=== PATIENT | male | born 1975 | race Caucasian/White ===

== ENCOUNTER 2023-08-22 18:37 | Emergency (ER) | payer OTHER, SELFPAY ==
[2023-08-22 19:05] VITALS: BP 168/97; PULSE 82; RESP 16; TEMP 36.8; O2SAT 94; BMI 30.3
--- NOTE | 2023-08-22 19:31 | ED_ITS ---
HPI - General Adult General Chief complaint: Laceration/Wound Stated complaint: Lac L hand Time Seen by Provider: 08/22/23 19:23 History of Present Illness HPI narrative: Pt has laceration to left hand. Was cutting an apple with a slicer. Needs Tetanus. 48-year-old man presenting to the emergency department having just sliced his left hand while cutting an apple. Has bled copiously is concerned that might have an arterial bleed. Is not reporting feeling lightheaded or short of breath. Is not complaining of pain. Not reporting loss of sensation or function. No anticoagulation noted Related Data Home Medications Medication Instructions Recorded Confirmed fluoxetine 40 mg capsule 40 mg PO DAILY 08/22/23 08/22/23 propranolol 20 mg tablet 20 mg PO BID 08/22/23 08/22/23 Allergies Allergy/AdvReac Type Severity Reaction Status Date / Time No Known Drug Allergies Allergy Verified 08/22/23 19:09 Review of Systems 2 Status of ROS: Reports: 6 or more systems reviewed and unremarkable except as noted in History and below Exam Narrative: Exam Narrative: Pleasant. Bearded. Blood soaked dressings held on to his left hand. Breathing easily. Calm. Removing dressings does show copious bleeding with pulsatile dark blood emanating from a shaved laceration that is full dermal over the left thenar eminence. Primary bleeding appears to be at the proximal and distal aspect from small surface vasculature. 2-1/4 inches in length extending distally just proximal to the medial aspect of the interphalangeal joint of the thumb. Maximal width 1-1/2-1-3/4 cm. Appears to have full extension and flexion with good strength of his hand/thumb. I did not test for sensation. Const: Vital Signs, click to edit/add: Vital Signs - 24 hr 08/22/23 19:05 Temperature 98.2 F Pulse Rate [Pulse Oximeter] 82 Respiratory Rate 16 Blood Pressure [Ri ght Upper Arm] 168/97 H Pulse Oximetry 94 Oxygen Delivery Me thod Room Air Documenting provider has reviewed patient's vital signs: yes Course Vital Signs Vital signs: Initial Vital Signs Temperature 98.2 F 08/22/23 19:05 Temperature Source Temporal Artery Scan 08/22/23 19:05 Pulse Rate 82 08/22/23 19:05 Pulse Rhythm Regular 08/22/23 19:05 Respiratory Rate 16 08/22/23 19:05 Blood Pressure 168/97 H 08/22/23 19:05 Blood Pressure Mean 120 H 08/22/23 19:05 Blood Pressure Position Sitting 08/22/23 19:05 Pulse Oximetry 94 08/22/23 19:05 Oxygen Delivery Method Room Air 08/22/23 19:05 Vital Signs Temperature 98.2 F 08/22/23 19:05 Pulse Rate 82 08/22/23 19:05 Respiratory Rate 16 08/22/23 19:05 Blood Pressure 168/97 H 08/22/23 19:05 Pulse Oximetry 94 08/22/23 19:05 Oxygen Delivery Method Room Air 08/22/23 19:05 Temperature 98.2 F 08/22/23 19:05 Pulse Rate 82 08/22/23 19:05 Respiratory Rate 16 08/22/23 19:05 Blood Pressure 168/97 H 08/22/23 19:05 Pulse Oximetry 94 08/22/23 19:05 Oxygen Delivery Method Room Air 08/22/23 19:05 Medical Decision Making MDM Narrative Medical decision making narrative: This will clearly need some repair/containment of bleeding. Does not appear to have damage deep structures. This wound is clearly going to have to heal by some degree of secondary intention. I do not think I will be able to close this completely without compromising tissue or function. I returned to inject with lidocaine with epinephrine. Compression reapplied by Luzmaria. Returning to clean and repair. Bleeding has slowed a little bit I think the epinephrine was helpful. Good wound anesthesia achieved. Cleansed with Shur- Clens type solution. Did place brief tourniquet at base of wrist. This allowed for placement of some 3-0 Ethilon horizontal mattress sutures to gain some control and closer approximation. Was considering potentially undermining tissue to bring wound edges closer together but I think this would just cause more bleeding with limited benefit. Conferred with colleague who also recom mended simple closure/approximation and secondary intention. Placed than some simple interrupteds. This loosened 2 of the horizontal mattress sutures which I replaced. Added some more 4-0 sutures. Bleeding really was quite controlled at this point. Did not necessitate any vascular ligature or cautery or other [id number] hemostasis effort. Antibiotic ointment and Adaptic and gauze wrap placed This is still an open wound. I think would benefit from some antibiotic prophylaxis. Actually approximated more than I expected. Less than 1/4 inch I think in width now. I would like though opinion by wound care. Requesting him to follow up this next week in wound care clinic. Offered DTaP update but he declined preferring to follow-up in clinic See patient discharge plan Discharge Plan Discharge Clinical Impression: Laceration of hand Patient Disposition: Home, Self-Care Condition: Improved Additional Instructions: Change dressing daily with antibiotic ointment, Adaptic and gauze wrap. antibiotic ointment for 6 days. I would like you to be seen during this time by the wound care clinic. Please call on Wednesday morning to be seen this coming week. sutures out in 10 days or otherwise as directed by wound care clinic. Watch for spreading redness after 2 days accompanied by heat, swelling, marked increase in pain, purulent drainage. Cephalexin from [facility] as infection prophylaxis. Please follow-up with your primary care provider to update DTaP. Prescriptions: No Action fluoxetine 40 mg capsule 40 mg PO DAILY propranolol 20 mg tablet 20 mg PO BID Follow Up/Referrals: Provider,Not a Local [Primary Care Provider] - Stand Alone Forms: [employer] Info Instructions
--- NOTE | 2023-08-22 21:42 | PC.NURSE ---
Left hand with bacitracin on it with non adhesive dsg, then wrapped in kerlex. All cares explained. Extra supplies provided for home use.
== END 2023-08-22 21:52 | disposition home or self-care (01) ==
PROVIDERS: Emergency Provider Family Medicine
DX: S61.412A Laceration without foreign body of left hand, initial encounter (principal); W45.8XXA Other foreign body or object entering through skin, initial encounter
CPT/HCPCS: 12001; 99283; 99284

== ENCOUNTER 2023-09-02 12:57 | Outpatient (CLI) | payer OTHER, SELFPAY | END 2023-09-02 12:58 | disposition home or self-care (01) | PROVIDERS: Visit Provider Family Medicine | DX: S61.412A Laceration without foreign body of left hand, initial encounter (principal); W26.8XXA Contact with other sharp object(s), not elsewhere classified, initial encounter; Y93.G3 Activity, cooking and baking; R03.0 Elevated blood-pressure reading, without diagnosis of hypertension; Z71.85 Encounter for immunization safety counseling; Z48.02 Encounter for removal of sutures | CPT/HCPCS: G0463 ==

== ENCOUNTER 2023-09-09 10:00 | Outpatient (CLI) | payer OTHER, SELFPAY ==
--- OUTSIDE RECORDS SUMMARY | 2023-09-09 10:05 | XMS_ITS | Clinical Summary ---
Author Name Unknown Organization [facility] Address [place], [place] [address] Care Team Providers Care Windows Administrator Name Role Phone Pcp, No Primary Care Provider Unavailabl e Allergies No known active allergies Medications Medication Sig Dispensed Refills Start Date End Date Status [place]-3 Fatty Acids (OMEGA-3) Cap Take by mouth. 0 03/08/2011 Active lactobacillus rhamnosus, GG, (PROBIOTIC) 10 billion cell capsule Take 1 capsule by mouth. 0 03/08/2011 Active ibuprofen (ADVIL; MOTRIN) 600 mg tablet Take 1 tablet by mouth 3 times daily with meals. Maximum of 3200 mg in 24 hours. 90 tablet 0 05/09/2012 Active acetaminophen (TYLENOL EXTRA STRGTH) 500 mg tablet Take 1 tablet by mouth every 6 hours if needed. Max acetaminophen dose: 4000mg in 24 hrs. 0 07/28/2013 Active naproxen (ALEVE) 220 mg tablet Take 1 tablet by mouth 2 times daily with meals. 0 07/28/2013 Active Active Problems No known active problems Immunizations Name Administration Dates Next Due Tdap 03/08/2011 Family History Medical History Relation Name Comments Cancer-prostate Father Diabetes Father Hypertension Father Psychiatric illness Father depressi on Diabetes Maternal Grandfather Heart Disease Maternal Grandfather Relation Name Status Comments Father Maternal Grandfather Social History Tobacco Use Types Packs/Day Years Used Date Smoking Tobacco: Former Cigarettes Q uit: 03/08/1991 Smokeless Tobacco: Current Chew Tobacco Cessation:Ready to Q uit: Yes; Counseling Given: Yes Comments:2 cans weekly, interest in quitting Alcohol Use Standard Drinks/Week Comments Yes 11.7 (1 standard drink = 0.6 oz pure alcohol) beer Sex and Gender Information Value Date Recorded Sex Assigned at Not on file Gender Identity Not on file Sexual Orientation Not on file Obstetrics History Last Filed Vital Signs Vital Sign Reading Time Taken Comments Blood Pressure 139/88 11/04/2015 9:38 AM BREWERY REPRESENTATIVE Pulse 79 11/04/2015 9:06 AM BREWERY REPRESENTATIVE Temperature 36.8 ??C (98.3 ??F) 11/04/2015 9:06 AM CS T Respiratory Rate 16 08/14/2010 10:4 9 AM BREWERY REPRESENTATIVE Oxygen Saturation 97% 11/04/2015 9:06 AM BREWERY REPRESENTATIVE Inhaled Oxygen Concentration - - Weight 86.5 kg (190 lb 12.8 oz) 11/04/2015 9:06 AM BREWERY REPRESENTATIVE Height 175 cm (5' 8.9) 11/04/2015 9:06 AM BREWERY REPRESENTATIVE Body Mass Index 28.26 11/04/2015 9:06 AM BREWERY REPRESENTATIVE Plan of Treatment Health Maintenance Due Date Last Done Comments COVID-19 vaccine series (#1) 1975 Depression screening for age 12+ 1987 HIV for age 15-65 1990 Hepatitis C screening for ag e 18-79 1993 BMI (ht and wt on same day) for age 18+ 11/03/2016 11/04/2015 Colonoscopy through age 75 2020 Lipids for age 45-75 2020 08/15/2010 Tetanus booster 03/08/2021 03/08/2011 Influenza for age 9-49 04/30/2023 Tdap Completed 03/08/2011 Pneumococcal series for age 6-64 Aged Out No longer eligible based on patient's age to complete this topic Care Teams Windows Administrator Relationship Specialty Start Date End Date Pcp, No . PCP - General 03/13/15
== END 2023-09-09 10:01 | disposition home or self-care (01) ==
PROVIDERS: Visit Provider Nurse Practitioner Family
DX: S61.412A Laceration without foreign body of left hand, initial encounter (principal)
CPT/HCPCS: G0463